=== PATIENT | female | born 1970 | race African-American/Black ===

== ENCOUNTER 2016-11-02 10:28 | Emergency (ER) | payer OTHER ==
[~2016-11-02 10:28] MED LIST: CITA10TA4 PO; DIAZ5TAB PO; DULO20CA PO; HYDR-971 PO; HYDR12.58 PO; NAPR500T8 PO; TRAM50TA PO
[2016-11-02 10:47] VITALS: BP 146/99
[2016-11-02] MEDS ORDERED: CIPR7.5D AU (11:41)
[2016-11-02] MEDS ORDERED: AMOX500T PO (11:41)
--- NOTE | 2016-11-02 11:41 | PHYS DOC ---
Past Medical History Past Medical History: Hypertension Past Surgical History: Tubal ligation, Other Additional Past Surgical Histo: CARPAL TUNNEL X2, CYST REMOVE L BREAST, R ANKLE Additional Information: Nonsmoker Alcohol Use: Occasionally Drug Use: None Adult General Chief Complaint Chief Complaint: COUGH HPI HPI Patient is a 45 year old female who presents with 1 week of URI symptoms. She reports chills and productive cough. She had a fever up to 101.5F, but has been afebrile for the past few days. She has headache, bilateral ear pain, nasal congestion, and sore throat. Today she noticed drainage from her ears. She denies shortness of breath, vomiting, or diarrhea. She did not receive a flu shot this year. Her has been ill with similar symptoms. Her PCP is Dr. Weiner. Review of Systems Review of Systems Constitutional: Reports fever and chills. Eyes: Denies change in visual acuity, redness, or eye pain. [] HENT: Reports bilateral ear pain with drainage, nasal congestion, and sore throat. Respiratory: Denies shortness of breath. Reports productive cough. Cardiovascular: Denies chest pain, palpitations or edema. [] GI: Denies abdominal pain, nausea, vomiting, bloody stools or diarrhea. [] : Denies dysuria, hematuria or urinary frequency. [] Musculoskeletal: Denies back pain or joint pain. [] Integument: Denies rash or skin lesions. [] Neurologic: Denies focal weakness or sensory changes. Reports frontal headache. Endocrine: Denies polyuria or polydipsia. [] Psych: Denies anxiety or depression. [] All systems reviewed and negative unless otherwise stated in the HPI. Allergies Allergies Allergies Coded Allergies Type Severity Reaction Last Updated Verified cyclobenzaprine Allergy Intermediate Hives and itching. 05/30/14 Yes Physical Exam Physical Exam Constitutional: Well developed, well nourished, no acute distress, non-toxic appearance. [] HENT: Normocephalic, atraumatic, bilateral external ears normal, oropharynx moist, no oral exudates, nose normal. Bilateral ear canals are swollen with purulent drainage. It is difficult to clearly visualize the TMs due to the edema. There is no posterior pharyngeal erythema. Bilateral nasal turbinates are swollen and erythematous with purulent drainage. Eyes: PERRLA, EOMI, conjunctiva normal, no discharge. [] Neck: Normal range of motion, no tenderness, supple, no stridor. [] Cardiovascular:Heart rate regular rhythm, no murmur [] Lungs & Thorax: Bilateral breath sounds clear to auscultation without wheezes, rales, or rhonchi. Skin: Warm, dry, no erythema, no rash. [] Neurologic: Alert and oriented X 3, normal motor function, normal sensory function, no focal deficits noted. [] Psychologic: Affect normal, judgement normal, mood normal. [] Current Patient Data Vital Signs Vital Signs Date Time Temp Pulse Resp B/P Pulse Ox O2 Delivery O2 Flow Rate FiO2 11/02/16 10:47 98.3 68 18 99 Room Air 98.3 EKG EKG [] Radiology/Procedures Radiology/Procedures [] Course & Med Decision Making Course & Med Decision Making Pertinent Labs and Imaging studies reviewed. (See chart for details) [] Dragon Disclaimer Dragon Disclaimer This electronic medical record was generated, in whole or in part, using a voice recognition dictation system. Departure Departure Impression: Primary Impression: Otitis externa Disposition: 01 HOME, SELF-CARE Condition: STABLE Referrals: UNKNOWN PCP NAME (PCP) Patient Instructions: Otitis Externa, [id number] Additional Instructions: You were seen today for an ear infection of both ears. Please complete all the prescribed antibiotics and use the eardrops as directed. Please follow-up with your primary care doctor within the next week. Return to the emergency department if you have any new or concerning symptoms. Scripts Ciprofloxacin Hcl/Dexameth (Ciprodex Otic Suspension)7.5 Ml Drops.susp4 Drop AU BID 7 Days Prov:MIGUEL LINO 11/02/16 Amoxicillin 500 Mg Tablet1 Tab PO TID #30 TAB Prov:MIGUEL LINO 11/02/16 Problem Qualifiers Primary Impression: Otitis externa Otitis externa type: unspecified type Laterality: bilateral Chronicity: acute Qualified Code: H60.503 - Unspecified acute noninfective otitis externa , bilateral MIGUEL LINO Nov 02, 2016 11:41
== END 2016-11-02 11:48 | disposition home or self-care (01) ==
LOC: ER 10:28
DX: H60.503 Unspecified acute noninfective otitis externa, bilateral (principal); R09.81 Nasal congestion; J02.9 Acute pharyngitis, unspecified; R51 Headache; I10 Essential (primary) hypertension; Z88.8 Allergy status to other drugs, medicaments and biological substances
CPT/HCPCS: 99283

== ENCOUNTER 2018-08-24 09:13 | Emergency (ER) | payer MEDICARE ==
[~2018-08-24] VITALS: Ht 160 cm; Wt 98.9 kg
[~2018-08-24 09:13] MED LIST changes: +AMOX500T PO; +CIPR7.5D AU; +HYDR-3164 PO; -HYDR-971 PO
[2018-08-24 09:17] VITALS: BP 163/101
[2018-08-24] MEDS ORDERED: SULF1TAB24 PO (09:37)
[2018-08-24] MEDS ORDERED: METH4TAB2 PO (09:37)
--- NOTE | 2018-08-24 09:46 | PHYS DOC ---
Past Medical History Past Medical History: Hypertension Past Surgical History: Tubal ligation, Other Additional Past Surgical Histo: CARPAL TUNNEL X2, CYST REMOVE L BREAST, R ANKLE Alcohol Use: None Drug Use: None Adult General Chief Complaint Chief Complaint: SKIN RASH/ABSCESS [facility] Patient is a 47 year old female who presents with an extremely itchy rash to her bilateral upper and lower extremities as well as some spots on her trunk. She does not know what the perception of the rash could be. She denies any known allergies. She states that she has seen her primary care provider who gave her hydrocortisone cream. She states that this is not relieving the itching. Review of Systems Review of Systems Constitutional: Denies fever or chills [] Respiratory: Denies cough or shortness of breath [] Cardiovascular: No additional information not addressed in [facility] [] GI: Denies abdominal pain, nausea, vomiting, bloody stools or diarrhea [] : Denies dysuria or hematuria [] Musculoskeletal: Denies back pain or joint pain [] Integument: See history of present illness Neurologic: Denies headache, focal weakness or sensory changes [] Endocrine: Denies polyuria or polydipsia [] All other systems were reviewed and found to be within normal limits, except as documented in this note. Allergies Allergies Allergies Coded Allergies Type Severity Reaction Last Updated Verified cyclobenzaprine Allergy Intermediate Hives and itching. 05/30/14 Yes Physical Exam Physical Exam Constitutional: Well developed, well nourished, no acute distress, non-toxic appearance. [] Cardiovascular:Heart rate regular rhythm, no murmur [] Lungs & Thorax: Bilateral breath sounds clear to auscultation [] Abdomen: Bowel sounds normal, soft, no tenderness, no masses, no pulsatile masses. [] Skin: There are itchy papules to bilateral arms with thick scaling and excoriation noted to bilateral lower extremities, the right lower extremity shows evidence of infection Back: No tenderness, no CVA tenderness. [] Extremities: No tenderness, no cyanosis, no clubbing, ROM intact, no edema. [] Neurologic: Alert and oriented X 3, normal motor function, normal sensory function, no focal deficits noted. [] Psychologic: Affect normal, judgement normal, mood normal. [] Current Patient Data Vital Signs Vital Signs Date Time Temp Pulse Resp B/P (MAP) Pulse Ox O2 Delivery O2 Flow Rate FiO2 08/24/18 09:17 97.9 85 20 163/101 (121) 100 Room Air 97.9 EKG EKG [] Radiology/Procedures Radiology/Procedures [] Course & Med Decision Making Course & Med Decision Making Pertinent Labs and Imaging studies reviewed. (See chart for details) []The patient has been placed on steroids to control itching as well as an antibiotic for her secondary skin infection. She is to follow-up with her primary care provider in one week for recheck. She is in agreement with this plan. Dragon Disclaimer Dragon Disclaimer This electronic medical record was generated, in whole or in part, using a voice recognition dictation system. Departure Departure Impression: Primary Impression: Rash Additional Impression: Secondary infection of skin Disposition: HOME, SELF-CARE Condition: STABLE Referrals: UNKNOWN PCP NAME (PCP) Patient Instructions: Rash, Skin Infections Additional Instructions: Take the medications as directed. Follow up with your PCP in one week for a recheck or return to the emergency department if worsening. Scripts Methylprednisolone (MEDROL) 4 Mg Tab.ds.pk 1 PKG PO UD for itching, #1 PKG Prov: CHANEL OLSEN APRN 08/24/18 Sulfamethoxazole/Trimethoprim (BACTRIM DS TABLET) 1 Each Tablet 1 TAB PO BID for infection, #20 TAB Prov: CHANEL OLSEN APRN 08/24/18 Problem Qualifiers CHANEL OLSEN APRN Aug 24, 2018 09:46
== END 2018-08-24 09:51 | disposition home or self-care (01) ==
LOC: ER 09:13
DX: R21 Rash and other nonspecific skin eruption (principal); L08.9 Local infection of the skin and subcutaneous tissue, unspecified; I10 Essential (primary) hypertension; Z88.8 Allergy status to other drugs, medicaments and biological substances
CPT/HCPCS: 99283